=== PATIENT | female | born 2000 | race Caucasian/White ===

== ENCOUNTER 2019-01-27 15:02 | Outpatient (CLI) | payer OTHER ==
[~2019-01-27] VITALS: Ht 157.5 cm; Wt 83.2 kg
[~2019-01-27 15:02] MED LIST: PREN1TAB13 PO
[2019-01-27 15:16] VITALS: Ht 157.5 cm; Wt 83.2 kg
[2019-01-27 15:17] VITALS: BP 112/73; PULSE 109; RESP 20
== END 2019-01-27 17:10 | disposition home or self-care (01) ==
LOC: OBT 15:02 → L-D 15:02 → OBT 17:10
PROVIDERS: ATTEND Obstetrics & Gynecology
DX: O13.3 Gestational [pregnancy-induced] hypertension without significant proteinuria, third trimester (principal); Z3A.36 36 weeks gestation of pregnancy
CPT/HCPCS: 76815; 76818; 80053; 81001; 84560; 85025; 85384; 85610; 85730; Z7500; G0463